=== PATIENT | female | born 1975 | race Caucasian/White ===

== ENCOUNTER 2017-05-10 12:49 | Emergency (ER) | payer OTHER ==
[~2017-05-10] VITALS: Ht 162.6 cm; Wt 50.9 kg
[~2017-05-10 12:49] MED LIST: TYLE500T PO
[2017-05-10 12:51] VITALS: BP 135/91; PULSE 94; RESP 18; TEMP 97.6; O2SAT 100
[2017-05-10 13:05] VITALS: BP 129/79; PULSE 87; RESP 15; O2SAT 100
[2017-05-10] MEDS ORDERED: NON-500T10 PO (13:05)
--- NOTE | 2017-05-10 13:31 | PD ---
HPI Chief Complaint: Injury Time Seen by Provider: 13:23 Travel History International Travel<30 days: No Contact w/Intl Traveler<30days: No Traveled to known affect area: No History of Present Illness HPI 41-year-old female complains of right knee pain. Patient states that she was wearing high heel and dancing 2 nights ago. Patient heard a pop on the right knee and immediately experienced sharp pain to the right knee joint. Patient states that the pain persists since then. Patient states the pain mostly lies on the medial aspect and anterior aspect of the right knee joint. Patient denies any pain radiation. Patient states the pain is worse weightbearing and movement of the right knee joint. On a scale of 1-10 the pain is an 8. PFSH Past Medical History Asthma: Yes (SPORTS INDUCED) Blood Disorders: No Anxiety: No Depression: No Cancer: No Cardiovascular Problems: No Diminished Hearing: No Endocrine: No Gastrointestinal Disorders: Yes (HX SMALL BOWEL OBSTRUCTION--CHRONIC ABD PAIN) Genitourinary: No Immune Disorder: No Medical other: Yes (abd adhesions) Musculoskeletal: No Neurologic: No Respiratory: Yes (ASTHMA) Immunizations Current: Yes Tetanus Vaccination: > 5 Years Influenza Vaccination: No ?: Not Menopausal: Yes Past Surgical History Abdominal Surgery: Yes (SEVERAL ABDOMINAL SURGERIES-ADHESIONS) Appendectomy: Yes Section: Yes Cholecystectomy: Yes Ear Surgery: Yes (TUBES) Gynecologic Surgery: Yes (c section hysterectomy) Hysterectomy: Yes Pacemaker: No Tonsillectomy: Yes (T&A) Other Surgery: Yes (BREAST AUGMENTATION) Social History Alcohol Use: Yes (OCC) Tobacco Use: No (quit 1999) Substance Use: No Allergies-Medications (Allergen,Severity, Reaction): Coded Allergies: lidocaine (Verified Allergy, Severe, SEVERE SWELLING, 05/10/17) morphine (Verified Allergy, Severe, HIVES, 05/10/17) octreotide (Verified Allergy, Severe, SWELLING AND PAIN, 05/10/17) butorphanol (Verified Adverse Reaction, Severe, OUT OF BODY EXPERIENCE, ) hydromorphone (Verified Adverse Reaction, Severe, Itching, 05/10/17) Reported Meds & Prescriptions Reported Meds & Active Scripts Active Reported Non-Aspirin Extra Strength (Acetaminophen) 500 Mg Tab 500 Mg PO Q4-6H PRN Review of Systems General / Constitutional: No: Fever Eyes: No: Visual changes HENT: No: Headaches Cardiovascular: No: Chest Pain or Discomfort Respiratory: No: Shortness of Breath Gastrointestinal: No: Abdominal Pain Genitourinary: No: Dysuria Musculoskeletal: Positive: Pain Skin: No Rash Neurologic: No: Weakness Psychiatric: No: Depression Endocrine: No: Polydipsia Hematologic/Lymphatic: No: Easy Bruising Physical Exam Narrative GENERAL: Well-nourished, well-developed patient. SKIN: Focused skin assessment warm/dry. HEAD: Normocephalic. EYES: No scleral icterus. No injection or drainage. NECK: Supple, trachea midline. No JVD or lymphadenopathy. CARDIOVASCULAR: Regular rate and rhythm without murmurs, gallops, or rubs. RESPIRATORY: Breath sounds equal bilaterally. No accessory muscle use. GASTROINTESTINAL: Abdomen soft, non-tender, nondistended. MUSCULOSKELETAL: Patient has moderate tenderness and palpation medial collateral ligament of the right knee and superior aspect of the right knee joint. Patient has mild tenderness to palpation of the medial lateral knee joint area. Limited range of motion of the right knee secondary to pain. No effusion noted. BACK: Nontender without obvious deformity. No CVA tenderness. Data Data Last Documented VS Vital Signs Date Time Temp Pulse Resp B/P (MAP) Pulse Ox O2 Delivery O2 Flow Rate FiO2 05/10/17 13:05 87 15 129/79 (96) 100 05/10/17 12:51 97.6 Orders Orders Knee, Complete (4vws) (05/10/17 13:24) Mri Joint Knee W/O Contrast (05/10/17 ) Splint Or Brace Apply/Monitor (05/10/17 15:30) Crutches (05/10/17 15:30) MDM Medical Decision Making Medical Screen Exam Complete: Yes Emergency Medical Condition: Yes Interpretation(s) Last Impressions Knee X-Ray 05/10/17 1324 Signed Impressions: Service Date/Time: Wednesday, May 10, 2017 13:39 - CONCLUSION: 1. No acute fracture or dislocation. Romel Mendoza MD Knee MRI 05/10/17 0000 Signed Impressions: Service Date/Time: Wednesday, May 10, 2017 13:46 - CONCLUSION: 1. Nondisplaced fracture of the lateral tibial plateau. 2. Focal contusion/nondisplaced fracture anteromedially of the patella and the adjacent medial aspect of the extensor mechanism. Neil Mckeon MD Differential Diagnosis Differential diagnosis including ligament injury, bony injury. Narrative Course 41-year-old female with right knee injury. Knee immobilizer and crutches given. Diagnosis Primary Impression: Fracture, tibial plateau Qualified Codes: S82.141A - Displaced bicondylar fracture of right tibia, initial encounter for closed fracture Additional Impression: Fracture of right patella Qualified Codes: S82.091A - Other fracture of right patella, initial encounter for closed fracture Patient Instructions: General Instructions Med/Other Pt SpecificInfo: Prescription(s) given Scripts Ondansetron Odt (Zofran Odt) 4 Mg Tab 4 MG SL Q6HR Y for Nausea/Vomiting, #12 TAB 0 Refills Prov: Emre Brown MD 05/10/17 Tramadol (Ultram) 50 Mg Tab 50 MG PO Q6H Y for PAIN, #30 TAB 0 Refills Prov: Emre Brown MD 05/10/17 Disposition: 01 DISCHARGE HOME Condition: Stable Emre Brown MD May 10, 2017 13:31
--- NOTE | 2017-05-10 14:18 | RADRPT ---
EXAM DATE/TIME: 05/10/2017 13:39 [facility] COMPARISON: No previous studies available for comparison. INDICATIONS : Right knee pain, twisted and fell MEDICAL HISTORY : None. SURGICAL HISTORY : None. ENCOUNTER: Initial ACUITY: 3 days PAIN SCORE: 10/10 LOCATION: Right Knee FINDINGS: Four view examination of the right knee demonstrates no evidence of fracture or dislocation. Bony mi neralization is normal. The articular surfaces are intact. The suprapatellar soft tissues have a no rmal configuration. CONCLUSION: 1. No acute fracture or dislocation. Romel Mendoza MD on May 10, 2017 at 14:15 Board Certified Radiologist. This report was verified electronically.
--- NOTE | 2017-05-10 16:11 | RADRPT ---
EXAM DATE/TIME: 05/10/2017 13:46 [facility] COMPARISON: No previous studies available for comparison. INDICATIONS : Internal derangement. MEDICAL HISTORY : None. SURGICAL HISTORY : section. Appendectomy. Cholecystectomy. ENCOUNTER: Initial ACUITY: 1 day PAIN SCORE: 5/10 LOCATION: Right Knee. TECHNIQUE: Multiplanar, multisequence MRI examination was performed without contrast. FINDINGS: Mildly comminuted nondisplaced fracture seen posteriorly the lateral tibial plateau. Menisci, cruciat e ligaments and collateral ligaments are all intact. Articular surfaces are within normal limits. The re is a small joint effusion. Tendinosis versus strain of the extensor mechanism and mild contusion anteromedially of the patella. CONCLUSION: 1. Nondisplaced fracture of the lateral tibial plateau. 2. Focal contusion/nondisplaced fracture anteromedially of the patella and the adjacent medial aspect of the extensor mechanism. Neil Mckeon MD on May 10, 2017 at 16:06 Board Certified Radiologist. This report was verified electronically.
[2017-05-10] MEDS ORDERED: TRAM50 PO (16:38)
[2017-05-10] MEDS ORDERED: ZOFR4TAB3 SL (16:39)
== END 2017-05-10 17:01 | disposition home or self-care (01) ==
LOC: NEPD 12:49
DX: S82.141A Displaced bicondylar fracture of right tibia, initial encounter for closed fracture (principal); J45.909 Unspecified asthma, uncomplicated; Y93.41 Activity, dancing; Z88.5 Allergy status to narcotic agent; Z88.8 Allergy status to other drugs, medicaments and biological substances
CPT/HCPCS: 73564; 73721; 99284; E0113; L1830